=== PATIENT | male | born 1935 | race Two or more races ===

== ENCOUNTER 2020-09-20 17:37 | Inpatient (IN) | payer MEDICARE, MEDICAID ==
[~2020-09-20] VITALS: Ht 165.1 cm; Wt 76.7 kg
[2020-09-20 18:47] LABS: Basophils # (auto) 0 10 ^3/uL (0-0.2); Basophils % (auto) 0.5 % (0.0-2.0); Eosinophils # (auto) 0 10 ^3/uL (0-0.8); Hematocrit 39.8 % (41.0-53.0); Hemoglobin 13.6 g/dL (13.5-17.5); Lymphocytes # (auto) 0.5 10 ^3/uL (0.4-5.4); Lymphocytes % (auto) 10.2 % (10.0-50.0); Mean Corpuscular Hgb Conc. 34.1 g/dL (32.0-36.0); Mean Corpuscular Volume 93.9 fL (80.0-100.0); Monocytes # (auto) 0.7 10 ^3/uL (0-1.3); Monocytes % (auto) 12.7 % (0.0-12.0); Neutrophils # (auto) 4.1 10 ^3/uL (1.6-8.6); Neutrophils % (auto) 76.6 % (37.0-80.0); Nucleated Red Blood Cells % 0.1 %; Platelet Count (auto) 271 10^3/uL (140-450); Red Blood Cells 4.24 10^6/uL (4.5-5.90); Red Cell Distribution Width 13.5 % (11.8-14.3); White Blood Cell 5.3 10^3/uL (4.4-10.8)
[2020-09-20 19:07] LABS: Albumin 2.8 g/dL (3.4-5.0); BUN/Creatinine Ratio 19.5; Calcium 8.1 mg/dL (8.5-10.1); Magnesium 2.1 mg/dL (1.6-2.6)
[2020-09-20 19:10] LABS: Bilirubin, Total 0.6 mg/dL (0.2-1.0); Total Protein 6.8 g/dL (6.4-8.2)
[2020-09-20 23:45] LABS: INR 1.09 (0.9-1.15); Partial Thromboplastin Time 31.3 sec (23.0-31.2)
[2020-09-21 00:52] LABS: Urine Bacteria NONE SEEN /hpf (None Seen); Urine Blood TRACE /uL (Negative); Urine Mucus FEW (None Seen); Urine Specific Gravity 1.029 (1.001-1.035); Urine WBC <1 /hpf (0 - 3)
[2020-09-21] MEDS ORDERED: ACETAMINOPHEN 500 MG TAB PO PRN (03:00)
[2020-09-21] MEDS ORDERED: NITROGLYCERIN 0.4 MG SL TAB SL PRN (03:00)
[2020-09-21] MEDS ORDERED: ONDANSETRON HCL 4 MG/2 ML VIAL IV PRN (03:00)
[2020-09-21] MEDS ORDERED: MORPHINE SULF INJ 2 MG/ML SYRINGE 1ML IV PRN (03:00)
[2020-09-21] MEDS ORDERED: DOCUSATE SOD 100 MG CAP PO PRN (03:00)
[2020-09-21 03:24] VITALS: BP 122/58
[2020-09-21] MEDS ORDERED: IOHEXOL 350 MG/ML 100ML IJ ONE (03:49)
[2020-09-21] MEDS: SODIUM CHLOR 0.9% PF (SALINE LOCK) 10ML VIAL/SYR IV SCH ×3 (06:13→22:00)
[2020-09-21] MEDS: ALBUTEROL SULF HFA 90MCG INH 200DOSE IN SCH ×3 (06:20→22:10)
[2020-09-21] MEDS ORDERED: ENOXAPARIN SOD 40 MG/0.4 ML SYRINGE SC SCH (10:00)
[2020-09-21] MEDS ORDERED: DOXYCYCLINE 100MG/250ML 250 ML IV SCH (10:00)
[2020-09-21] MEDS: BUDESONIDE (INHALATION) 180 MCG IH IN SCH ×2 (10:07→22:10)
[2020-09-21] MEDS: ASCORBIC ACID 1,000 MG TAB PO SCH (10:12)
[2020-09-21] MEDS: APIXABAN 5 MG TAB PO SCH ×2 (10:12→22:45)
[2020-09-21] MEDS: CHOLECALCIFEROL (VITD3) 2,000 UNIT CAP PO SCH (10:12)
[2020-09-21] MEDS: PANTOPRAZOLE 40 MG/10 ML VIAL INJ IV SCH (10:12)
[2020-09-21] MEDS: DexAMETHasone SOD PHOS 10MG/1ML VIAL INJ IV SCH (10:12)
[2020-09-21] MEDS: MULTIPLE VITAMIN TAB PO SCH (10:12)
[2020-09-21] MEDS: ZINC SULFATE 220mg CAP or TAB PO SCH (10:12)
[2020-09-21] MEDS ORDERED: FUROSEMIDE 20 MG/2 ML VIAL IV ONE (12:00)
[2020-09-21] MEDS ORDERED: POTASSIUM CHL 10 Meq TABLET PO ONE (12:00)
[2020-09-21] MEDS ORDERED: PIPERACILLIN-TAZOB 3.375GM 100 ML IV SCH (12:00)
[2020-09-21] MEDS ORDERED: REMDESIVIR 200 MG in NS 210ml LOADING DOSE ADULT IV ONE (18:00)
[2020-09-21] MEDS: PIPERACILLIN-TAZOB 3.375GM 100 ML IV SCH (20:02)
[2020-09-21 23:29] VITALS: BP 97/59
[2020-09-21 23:30] VITALS: BP 97/59
[2020-09-22 00:15] VITALS: BP 94/57
[2020-09-22 00:17] VITALS: BP 94/57
[2020-09-22 02:30] VITALS: BP 103/55
[2020-09-22] MEDS: PIPERACILLIN-TAZOB 3.375GM 100 ML IV SCH ×4 (02:45→20:45)
[2020-09-22] MEDS: ALBUTEROL SULF HFA 90MCG INH 200DOSE IN SCH ×3 (06:00→21:59)
[2020-09-22] MEDS: SODIUM CHLOR 0.9% PF (SALINE LOCK) 10ML VIAL/SYR IV SCH ×3 (06:23→23:40)
[2020-09-22 09:16] LABS: Basophils # (auto) 0 10 ^3/uL (0-0.2); Eosinophils # (auto) 0 10 ^3/uL (0-0.8); Hematocrit 39.8 % (41.0-53.0); Hemoglobin 13.8 g/dL (13.5-17.5); Lymphocytes # (auto) 0.5 10 ^3/uL (0.4-5.4); Lymphocytes % (auto) 6.6 % (10.0-50.0); Mean Corpuscular Hemoglobin 32.4 pg (28.0-32.0); Mean Corpuscular Hgb Conc. 34.6 g/dL (32.0-36.0); Mean Corpuscular Volume 93.8 fL (80.0-100.0); Monocytes # (auto) 0.8 10 ^3/uL (0-1.3); Monocytes % (auto) 9.9 % (0.0-12.0); Neutrophils # (auto) 6.9 10 ^3/uL (1.6-8.6); Neutrophils % (auto) 83.5 % (37.0-80.0); Nucleated Red Blood Cells % 0.1 %; Platelet Count (auto) 293 10^3/uL (140-450); Red Blood Cells 4.24 10^6/uL (4.5-5.90); Red Cell Distribution Width 13.8 % (11.8-14.3); White Blood Cell 8.3 10^3/uL (4.4-10.8)
[2020-09-22] MEDS: DexAMETHasone SOD PHOS 10MG/1ML VIAL INJ IV SCH (09:52)
[2020-09-22] MEDS: FUROSEMIDE 20 MG/2 ML VIAL IV SCH (09:52)
[2020-09-22 09:53] LABS: Albumin 2.5 g/dL (3.4-5.0); BUN/Creatinine Ratio 27.1; Bilirubin, Total 0.7 mg/dL (0.2-1.0); Calcium 8.3 mg/dL (8.5-10.1); Magnesium 2.6 mg/dL (1.6-2.6); Total Protein 6.6 g/dL (6.4-8.2)
[2020-09-22] MEDS: MULTIPLE VITAMIN TAB PO SCH (09:53)
[2020-09-22] MEDS: APIXABAN 5 MG TAB PO SCH (09:53)
[2020-09-22] MEDS: ZINC SULFATE 220mg CAP or TAB PO SCH (09:53)
[2020-09-22] MEDS: ASCORBIC ACID 1,000 MG TAB PO SCH (09:53)
[2020-09-22] MEDS: CHOLECALCIFEROL (VITD3) 2,000 UNIT CAP PO SCH (09:53)
[2020-09-22] MEDS: PANTOPRAZOLE 40 MG/10 ML VIAL INJ IV SCH (09:53)
[2020-09-22] MEDS: POTASSIUM CHL 10 Meq TABLET PO SCH (09:53)
[2020-09-22] MEDS: BUDESONIDE (INHALATION) 180 MCG IH IN SCH ×2 (10:00→21:59)
[2020-09-22] MEDS ORDERED: ASPirin-EC 81 mg tab PO ONE (12:30)
[2020-09-22] MEDS: REMDESIVIR 100mg in NS 230ml DAILYx4DAYS (NO VENT) IV SCH (16:57)
--- NOTE | 2020-09-22 22:01 | NUR ---
AT BEDSIDE FOR MDI AND DPI ADMINISTRATION.
[2020-09-22] MEDS: CARVEDILOL 3.125 MG TAB PO SCH (23:41)
[2020-09-22] MEDS: ENOXAPARIN SOD 100 MG/1 ML SYRINGE SC SCH (23:41)
[2020-09-22] MEDS: ATORVASTATIN 20 MG TAB PO SCH (23:41)
[2020-09-23] MEDS: PIPERACILLIN-TAZOB 3.375GM 100 ML IV SCH ×4 (02:40→20:17)
[2020-09-23] MEDS: SODIUM CHLOR 0.9% PF (SALINE LOCK) 10ML VIAL/SYR IV SCH ×3 (06:20→22:00)
[2020-09-23 06:53] LABS: Basophils # (auto) 0 10 ^3/uL (0-0.2); Basophils % (auto) 0.1 % (0.0-2.0); Eosinophils # (auto) 0 10 ^3/uL (0-0.8); Hematocrit 39.6 % (41.0-53.0); Hemoglobin 13.4 g/dL (13.5-17.5); Lymphocytes # (auto) 0.5 10 ^3/uL (0.4-5.4); Lymphocytes % (auto) 4.3 % (10.0-50.0); Mean Corpuscular Hemoglobin 31.6 pg (28.0-32.0); Mean Corpuscular Hgb Conc. 33.7 g/dL (32.0-36.0); Mean Corpuscular Volume 93.8 fL (80.0-100.0); Monocytes # (auto) 1.1 10 ^3/uL (0-1.3); Monocytes % (auto) 9.8 % (0.0-12.0); Neutrophils # (auto) 9.6 10 ^3/uL (1.6-8.6); Neutrophils % (auto) 85.8 % (37.0-80.0); Platelet Count (auto) 324 10^3/uL (140-450); Red Blood Cells 4.23 10^6/uL (4.5-5.90); Red Cell Distribution Width 13.6 % (11.8-14.3); White Blood Cell 11.2 10^3/uL (4.4-10.8)
[2020-09-23 07:09] LABS: Albumin 2.3 g/dL (3.4-5.0); BUN/Creatinine Ratio 31.9; Calcium 7.9 mg/dL (8.5-10.1); Potassium 4.3 mmol/L (3.5-5.1)
[2020-09-23] MEDS: ALBUTEROL SULF HFA 90MCG INH 200DOSE IN SCH ×3 (07:10→22:26)
[2020-09-23] MEDS: BUDESONIDE (INHALATION) 180 MCG IH IN SCH ×2 (07:10→22:26)
--- NOTE | 2020-09-23 07:10 | NUR ---
PT ON 15L NRB WITH SPO2 93% AND WAS EDUCATED REGARDING PRONING TO IMPROVE OXYGENATION. PT VERBALIZED UNDERSTANDING.
[2020-09-23 07:14] LABS: Bilirubin, Total 0.8 mg/dL (0.2-1.0); Total Protein 6.3 g/dL (6.4-8.2)
[2020-09-23] MEDS: ASCORBIC ACID 1,000 MG TAB PO SCH (08:26)
[2020-09-23] MEDS: POTASSIUM CHL 10 Meq TABLET PO SCH (08:26)
[2020-09-23] MEDS: ASPirin-EC 81 mg tab PO SCH (08:26)
[2020-09-23] MEDS: ZINC SULFATE 220mg CAP or TAB PO SCH (08:26)
[2020-09-23] MEDS: CHOLECALCIFEROL (VITD3) 2,000 UNIT CAP PO SCH (08:26)
[2020-09-23] MEDS: FUROSEMIDE 20 MG/2 ML VIAL IV SCH (08:27)
[2020-09-23] MEDS: DexAMETHasone SOD PHOS 10MG/1ML VIAL INJ IV SCH (08:27)
[2020-09-23] MEDS: CARVEDILOL 3.125 MG TAB PO SCH ×2 (08:27→22:06)
[2020-09-23] MEDS: MULTIPLE VITAMIN TAB PO SCH (08:29)
[2020-09-23] MEDS: ENOXAPARIN SOD 100 MG/1 ML SYRINGE SC SCH ×2 (08:29→22:00)
[2020-09-23] MEDS: PANTOPRAZOLE 40 MG/10 ML VIAL INJ IV SCH (08:29)
[2020-09-23] MEDS: DOXYCYCLINE 100MG/250ML 250 ML IV SCH (14:17)
[2020-09-23] MEDS: REMDESIVIR 100mg in NS 230ml DAILYx4DAYS (NO VENT) IV SCH (16:31)
[2020-09-23] MEDS: ATORVASTATIN 20 MG TAB PO SCH (22:00)
[2020-09-24] MEDS: DOXYCYCLINE 100MG/250ML 250 ML IV SCH ×2 (01:34→12:40)
[2020-09-24 02:38] VITALS: BP 106/65
[2020-09-24] MEDS: PIPERACILLIN-TAZOB 3.375GM 100 ML IV SCH ×4 (03:00→19:51)
[2020-09-24] MEDS: SODIUM CHLOR 0.9% PF (SALINE LOCK) 10ML VIAL/SYR IV SCH ×3 (06:24→22:18)
[2020-09-24 06:37] LABS: Basophils # (auto) 0 10 ^3/uL (0-0.2); Eosinophils # (auto) 0 10 ^3/uL (0-0.8); Hematocrit 41.2 % (41.0-53.0); Hemoglobin 13.7 g/dL (13.5-17.5); Lymphocytes # (auto) 0.6 10 ^3/uL (0.4-5.4); Lymphocytes % (auto) 3.5 % (10.0-50.0); Mean Corpuscular Hemoglobin 31.5 pg (28.0-32.0); Mean Corpuscular Hgb Conc. 33.2 g/dL (32.0-36.0); Mean Corpuscular Volume 94.8 fL (80.0-100.0); Monocytes # (auto) 1.8 10 ^3/uL (0-1.3); Monocytes % (auto) 10.8 % (0.0-12.0); Neutrophils # (auto) 14.3 10 ^3/uL (1.6-8.6); Neutrophils % (auto) 85.7 % (37.0-80.0); Platelet Count (auto) 400 10^3/uL (140-450); Red Blood Cells 4.34 10^6/uL (4.5-5.90); Red Cell Distribution Width 13.9 % (11.8-14.3); White Blood Cell 16.7 10^3/uL (4.4-10.8)
[2020-09-24 06:59] LABS: Albumin 2.3 g/dL (3.4-5.0); Calcium 7.9 mg/dL (8.5-10.1); Potassium 3.9 mmol/L (3.5-5.1)
[2020-09-24 07:03] LABS: BUN/Creatinine Ratio 32.3; Bilirubin, Total 0.8 mg/dL (0.2-1.0); Total Protein 6.6 g/dL (6.4-8.2)
[2020-09-24] MEDS: ALBUTEROL SULF HFA 90MCG INH 200DOSE IN SCH ×3 (08:22→22:00)
[2020-09-24] MEDS: DexAMETHasone SOD PHOS 10MG/1ML VIAL INJ IV SCH (09:26)
[2020-09-24] MEDS: FUROSEMIDE 20 MG/2 ML VIAL IV SCH (09:26)
[2020-09-24] MEDS: PANTOPRAZOLE 40 MG/10 ML VIAL INJ IV SCH (09:26)
[2020-09-24] MEDS: ASPirin-EC 81 mg tab PO SCH (09:30)
[2020-09-24] MEDS: CARVEDILOL 3.125 MG TAB PO SCH ×2 (09:30→22:18)
[2020-09-24] MEDS: ZINC SULFATE 220mg CAP or TAB PO SCH (09:30)
[2020-09-24] MEDS: ASCORBIC ACID 1,000 MG TAB PO SCH (09:31)
[2020-09-24] MEDS: CHOLECALCIFEROL (VITD3) 2,000 UNIT CAP PO SCH (09:31)
[2020-09-24] MEDS: BUDESONIDE (INHALATION) 180 MCG IH IN SCH ×2 (09:31→22:00)
[2020-09-24] MEDS: POTASSIUM CHL 10 Meq TABLET PO SCH (09:31)
[2020-09-24] MEDS: MULTIPLE VITAMIN TAB PO SCH (09:31)
[2020-09-24] MEDS: ENOXAPARIN SOD 100 MG/1 ML SYRINGE SC SCH (09:33)
[2020-09-24 14:37] VITALS: BP 101/62
[2020-09-24] MEDS: REMDESIVIR 100mg in NS 230ml DAILYx4DAYS (NO VENT) IV SCH (17:05)
[2020-09-24] MEDS: Ensure Enlive Strawberry 8oz Bottle PO SCH (18:42)
[2020-09-24 19:23] VITALS: BP 103/76
[2020-09-24] MEDS: ATORVASTATIN 20 MG TAB PO SCH (22:18)
[2020-09-24] MEDS: ENOXAPARIN SOD 80 MG/0.8ML SYRINGE SC SCH (22:19)
[2020-09-24 22:22] VITALS: BP 129/80
[2020-09-25] MEDS: PIPERACILLIN-TAZOB 3.375GM 100 ML IV SCH ×4 (02:00→20:25)
[2020-09-25 02:29] VITALS: BP 110/66
[2020-09-25] MEDS: SODIUM CHLOR 0.9% PF (SALINE LOCK) 10ML VIAL/SYR IV SCH ×3 (06:00→22:37)
[2020-09-25 06:35] VITALS: BP 110/61
[2020-09-25] MEDS: BUDESONIDE (INHALATION) 180 MCG IH IN SCH ×2 (06:35→22:30)
[2020-09-25] MEDS: ALBUTEROL SULF HFA 90MCG INH 200DOSE IN SCH ×3 (06:35→22:30)
[2020-09-25 07:12] LABS: Basophils # (auto) 0 10 ^3/uL (0-0.2); Basophils % (auto) 0.1 % (0.0-2.0); Eosinophils # (auto) 0 10 ^3/uL (0-0.8); Hematocrit 40.1 % (41.0-53.0); Hemoglobin 13.4 g/dL (13.5-17.5); Lymphocytes # (auto) 0.5 10 ^3/uL (0.4-5.4); Lymphocytes % (auto) 3.2 % (10.0-50.0); Mean Corpuscular Hemoglobin 31.3 pg (28.0-32.0); Mean Corpuscular Hgb Conc. 33.4 g/dL (32.0-36.0); Mean Corpuscular Volume 93.7 fL (80.0-100.0); Monocytes % (auto) 6.8 % (0.0-12.0); Neutrophils # (auto) 13.8 10 ^3/uL (1.6-8.6); Neutrophils % (auto) 89.9 % (37.0-80.0); Nucleated Red Blood Cells % 0.1 %; Platelet Count (auto) 369 10^3/uL (140-450); Red Blood Cells 4.27 10^6/uL (4.5-5.90); Red Cell Distribution Width 13.8 % (11.8-14.3); White Blood Cell 15.3 10^3/uL (4.4-10.8)
[2020-09-25 07:25] LABS: Albumin 2.1 g/dL (3.4-5.0); Calcium 7.8 mg/dL (8.5-10.1); Potassium 3.8 mmol/L (3.5-5.1)
[2020-09-25 07:34] LABS: BUN/Creatinine Ratio 32.8; Bilirubin, Total 0.8 mg/dL (0.2-1.0); CRP High Sensitivity 6.77 mg/dL (< 0.3); Total Protein 6.1 g/dL (6.4-8.2)
[2020-09-25] MEDS: Ensure Enlive Strawberry 8oz Bottle PO SCH ×3 (08:00→18:00)
[2020-09-25] MEDS: CARVEDILOL 3.125 MG TAB PO SCH ×2 (08:30→22:36)
[2020-09-25] MEDS: PANTOPRAZOLE 40 MG/10 ML VIAL INJ IV SCH (08:30)
[2020-09-25] MEDS: FUROSEMIDE 20 MG/2 ML VIAL IV SCH (08:30)
[2020-09-25] MEDS: ZINC SULFATE 220mg CAP or TAB PO SCH (08:30)
[2020-09-25] MEDS: DexAMETHasone SOD PHOS 10MG/1ML VIAL INJ IV SCH (08:30)
[2020-09-25] MEDS: ENOXAPARIN SOD 80 MG/0.8ML SYRINGE SC SCH ×2 (08:31→22:35)
[2020-09-25] MEDS: POTASSIUM CHL 10 Meq TABLET PO SCH (08:31)
[2020-09-25] MEDS: ASCORBIC ACID 1,000 MG TAB PO SCH (08:31)
[2020-09-25] MEDS: CHOLECALCIFEROL (VITD3) 2,000 UNIT CAP PO SCH (08:31)
[2020-09-25] MEDS: MULTIPLE VITAMIN TAB PO SCH (08:31)
[2020-09-25] MEDS: ASPirin-EC 81 mg tab PO SCH (08:31)
[2020-09-25] MEDS: DOXYCYCLINE 100MG/250ML 250 ML IV SCH ×2 (09:32)
[2020-09-25] MEDS: Ensure Enlive Chocolate 8oz Bottle PO SCH ×2 (12:02→18:00)
--- NOTE | 2020-09-25 15:57 | NUR ---
Nutrition Assessment Notes Please refer to link for full assessment notes. Est Energy needs: 3186-7036 kcals (20-23 kcal/kgBW) Est Protein needs: 77-84 gms/day (1.0-1.1 gm/kgBW) Will continue to monitor and reassess prn. Addendum: 09/25/20 at [address] Amended: Links added.
[2020-09-25] MEDS: REMDESIVIR 100mg in NS 230ml DAILYx4DAYS (NO VENT) IV SCH (16:26)
[2020-09-25 18:35] VITALS: BP 115/62
[2020-09-25 22:30] VITALS: BP 113/67
[2020-09-25] MEDS: ATORVASTATIN 20 MG TAB PO SCH (22:35)
[2020-09-26] MEDS: DOXYCYCLINE 100MG/250ML 250 ML IV SCH ×2 (00:26→12:39)
[2020-09-26] MEDS: PIPERACILLIN-TAZOB 3.375GM 100 ML IV SCH ×4 (02:01→19:59)
[2020-09-26 02:33] VITALS: BP 119/65
[2020-09-26] MEDS: SODIUM CHLOR 0.9% PF (SALINE LOCK) 10ML VIAL/SYR IV SCH ×3 (06:11→22:19)
[2020-09-26 06:43] LABS: Basophils # (auto) 0 10 ^3/uL (0-0.2); Basophils % (auto) 0.1 % (0.0-2.0); Eosinophils # (auto) 0 10 ^3/uL (0-0.8); Hematocrit 42.6 % (41.0-53.0); Hemoglobin 14.1 g/dL (13.5-17.5); Lymphocytes # (auto) 0.5 10 ^3/uL (0.4-5.4); Lymphocytes % (auto) 2.5 % (10.0-50.0); Mean Corpuscular Hemoglobin 31.3 pg (28.0-32.0); Mean Corpuscular Volume 94.6 fL (80.0-100.0); Monocytes # (auto) 1.5 10 ^3/uL (0-1.3); Monocytes % (auto) 7.7 % (0.0-12.0); Neutrophils # (auto) 17.5 10 ^3/uL (1.6-8.6); Neutrophils % (auto) 89.7 % (37.0-80.0); Nucleated Red Blood Cells % 0.1 %; Platelet Count (auto) 395 10^3/uL (140-450); Red Cell Distribution Width 14.1 % (11.8-14.3); White Blood Cell 19.5 10^3/uL (4.4-10.8)
[2020-09-26 07:15] VITALS: BP 115/60
[2020-09-26] MEDS: ALBUTEROL SULF HFA 90MCG INH 200DOSE IN SCH ×3 (07:15→22:59)
[2020-09-26] MEDS: Ensure Enlive Strawberry 8oz Bottle PO SCH ×3 (08:00→18:00)
[2020-09-26] MEDS: Ensure Enlive Chocolate 8oz Bottle PO SCH ×2 (08:48→12:00)
[2020-09-26] MEDS: CARVEDILOL 3.125 MG TAB PO SCH ×2 (09:09→22:00)
[2020-09-26] MEDS: POTASSIUM CHL 10 Meq TABLET PO SCH (09:09)
[2020-09-26] MEDS: ASPirin-EC 81 mg tab PO SCH (09:09)
[2020-09-26] MEDS: MULTIPLE VITAMIN TAB PO SCH (09:10)
[2020-09-26] MEDS: ZINC SULFATE 220mg CAP or TAB PO SCH (09:10)
[2020-09-26] MEDS: CHOLECALCIFEROL (VITD3) 2,000 UNIT CAP PO SCH (09:10)
[2020-09-26] MEDS: DexAMETHasone SOD PHOS 10MG/1ML VIAL INJ IV SCH (09:11)
[2020-09-26] MEDS: FUROSEMIDE 20 MG/2 ML VIAL IV SCH (09:11)
[2020-09-26] MEDS: ENOXAPARIN SOD 80 MG/0.8ML SYRINGE SC SCH ×2 (09:11→22:20)
[2020-09-26] MEDS: PANTOPRAZOLE 40 MG/10 ML VIAL INJ IV SCH (09:11)
[2020-09-26] MEDS: ASCORBIC ACID 1,000 MG TAB PO SCH (09:11)
[2020-09-26] MEDS: BUDESONIDE (INHALATION) 180 MCG IH IN SCH ×2 (09:50→22:59)
[2020-09-26 12:12] VITALS: BP 122/72
[2020-09-26 18:44] VITALS: BP 93/53
[2020-09-26 20:08] VITALS: BP 93/53
[2020-09-26] MEDS: ATORVASTATIN 20 MG TAB PO SCH (22:00)
[2020-09-26 22:59] VITALS: BP 101/50
[2020-09-27] MEDS: PIPERACILLIN-TAZOB 3.375GM 100 ML IV SCH ×4 (01:50→20:00)
[2020-09-27 06:10] VITALS: BP 114/50
[2020-09-27] MEDS: SODIUM CHLOR 0.9% PF (SALINE LOCK) 10ML VIAL/SYR IV SCH ×3 (06:13→21:18)
[2020-09-27] MEDS: BUDESONIDE (INHALATION) 180 MCG IH IN SCH ×2 (06:23→22:20)
[2020-09-27] MEDS: ALBUTEROL SULF HFA 90MCG INH 200DOSE IN SCH ×3 (06:23→22:20)
[2020-09-27] MEDS: Ensure Enlive Strawberry 8oz Bottle PO SCH ×3 (08:00→18:00)
[2020-09-27 08:56] LABS: Basophils # (auto) 0 10 ^3/uL (0-0.2); Basophils % (auto) 0.1 % (0.0-2.0); Eosinophils # (auto) 0 10 ^3/uL (0-0.8); Hematocrit 38.6 % (41.0-53.0); Hemoglobin 12.9 g/dL (13.5-17.5); Lymphocytes # (auto) 0.4 10 ^3/uL (0.4-5.4); Lymphocytes % (auto) 2.1 % (10.0-50.0); Mean Corpuscular Hemoglobin 31.2 pg (28.0-32.0); Mean Corpuscular Hgb Conc. 33.5 g/dL (32.0-36.0); Mean Corpuscular Volume 93.1 fL (80.0-100.0); Monocytes # (auto) 1.3 10 ^3/uL (0-1.3); Monocytes % (auto) 7.1 % (0.0-12.0); Neutrophils # (auto) 16.9 10 ^3/uL (1.6-8.6); Neutrophils % (auto) 90.7 % (37.0-80.0); Platelet Count (auto) 443 10^3/uL (140-450); Red Blood Cells 4.15 10^6/uL (4.5-5.90); Red Cell Distribution Width 14.2 % (11.8-14.3); White Blood Cell 18.7 10^3/uL (4.4-10.8)
[2020-09-27 09:07] LABS: Bilirubin, Direct 0.5 mg/dL (0-0.2); Magnesium 2.7 mg/dL (1.6-2.6); Potassium 4.1 mmol/L (3.5-5.1)
[2020-09-27 09:12] LABS: Bilirubin, Total 0.8 mg/dL (0.2-1.0); Total Protein 6.4 g/dL (6.4-8.2)
[2020-09-27] MEDS: DexAMETHasone SOD PHOS 10MG/1ML VIAL INJ IV SCH (09:28)
[2020-09-27] MEDS: PANTOPRAZOLE 40 MG/10 ML VIAL INJ IV SCH (09:29)
[2020-09-27] MEDS: POTASSIUM CHL 10 Meq TABLET PO SCH (09:29)
[2020-09-27] MEDS: ENOXAPARIN SOD 80 MG/0.8ML SYRINGE SC SCH ×2 (09:29→21:19)
[2020-09-27] MEDS: ASCORBIC ACID 1,000 MG TAB PO SCH (09:29)
[2020-09-27] MEDS: MULTIPLE VITAMIN TAB PO SCH (09:29)
[2020-09-27] MEDS: FUROSEMIDE 20 MG/2 ML VIAL IV SCH (09:29)
[2020-09-27] MEDS: CHOLECALCIFEROL (VITD3) 2,000 UNIT CAP PO SCH (09:29)
[2020-09-27] MEDS: CARVEDILOL 3.125 MG TAB PO SCH ×2 (09:30→21:18)
[2020-09-27] MEDS: ASPirin-EC 81 mg tab PO SCH (09:30)
[2020-09-27] MEDS: ZINC SULFATE 220mg CAP or TAB PO SCH (09:30)
[2020-09-27 10:20] VITALS: BP 103/60
[2020-09-27 14:08] VITALS: BP 98/58
[2020-09-27] MEDS: ATORVASTATIN 20 MG TAB PO SCH (21:18)
[2020-09-27 22:10] VITALS: BP 114/50
[2020-09-28 02:10] VITALS: BP 123/75
[2020-09-28] MEDS: PIPERACILLIN-TAZOB 3.375GM 100 ML IV SCH ×4 (03:11→21:07)
[2020-09-28] MEDS: SODIUM CHLOR 0.9% PF (SALINE LOCK) 10ML VIAL/SYR IV SCH ×3 (06:21→23:00)
[2020-09-28 07:00] VITALS: BP 115/72
[2020-09-28] MEDS: ALBUTEROL SULF HFA 90MCG INH 200DOSE IN SCH ×3 (07:00→18:53)
[2020-09-28] MEDS: BUDESONIDE (INHALATION) 180 MCG IH IN SCH ×2 (07:00→18:53)
[2020-09-28] MEDS: Ensure Enlive Strawberry 8oz Bottle PO SCH ×3 (07:43→17:21)
[2020-09-28 08:09] LABS: Basophils # (auto) 0 10 ^3/uL (0-0.2); Basophils % (auto) 0.1 % (0.0-2.0); Eosinophils # (auto) 0 10 ^3/uL (0-0.8); Eosinophils % (auto) 0.1 % (0.0-7.0); Hematocrit 40.9 % (41.0-53.0); Hemoglobin 13.4 g/dL (13.5-17.5); Lymphocytes # (auto) 0.4 10 ^3/uL (0.4-5.4); Lymphocytes % (auto) 2.4 % (10.0-50.0); Mean Corpuscular Hgb Conc. 32.8 g/dL (32.0-36.0); Mean Corpuscular Volume 94.5 fL (80.0-100.0); Monocytes # (auto) 1.3 10 ^3/uL (0-1.3); Monocytes % (auto) 7.3 % (0.0-12.0); Neutrophils # (auto) 16.3 10 ^3/uL (1.6-8.6); Neutrophils % (auto) 90.1 % (37.0-80.0); Platelet Count (auto) 442 10^3/uL (140-450); Red Blood Cells 4.33 10^6/uL (4.5-5.90); Red Cell Distribution Width 14.4 % (11.8-14.3); White Blood Cell 18.1 10^3/uL (4.4-10.8)
[2020-09-28] MEDS: ZINC SULFATE 220mg CAP or TAB PO SCH (08:28)
[2020-09-28] MEDS: MULTIPLE VITAMIN TAB PO SCH (08:29)
[2020-09-28] MEDS: CARVEDILOL 3.125 MG TAB PO SCH ×2 (08:29→23:01)
[2020-09-28] MEDS: POTASSIUM CHL 10 Meq TABLET PO SCH (08:29)
[2020-09-28] MEDS: ASPirin-EC 81 mg tab PO SCH (08:29)
[2020-09-28] MEDS: CHOLECALCIFEROL (VITD3) 2,000 UNIT CAP PO SCH (08:30)
[2020-09-28] MEDS: ASCORBIC ACID 1,000 MG TAB PO SCH (08:30)
[2020-09-28 08:42] LABS: BUN/Creatinine Ratio 43.8; Calcium 8.3 mg/dL (8.5-10.1); Magnesium 3.1 mg/dL (1.6-2.6); Potassium 4.6 mmol/L (3.5-5.1)
[2020-09-28] MEDS: DexAMETHasone SOD PHOS 10MG/1ML VIAL INJ IV SCH (09:01)
[2020-09-28] MEDS: FUROSEMIDE 20 MG/2 ML VIAL IV SCH (09:01)
[2020-09-28] MEDS: PANTOPRAZOLE 40 MG/10 ML VIAL INJ IV SCH (09:01)
[2020-09-28] MEDS: ENOXAPARIN SOD 80 MG/0.8ML SYRINGE SC SCH ×2 (09:01→23:00)
[2020-09-28] MEDS ORDERED: APIXABAN 5 MG TAB PO SCH (10:00)
--- NOTE | 2020-09-28 11:26 | NUR ---
Nutrition Followup Notes Pt wt is 76.6 kg Pt is positive for COVID. Pt is with a 2g Sodium diet with no record of PO intake other than 240ml on 09/24 per RN doc. Pt is also with Ensure Enlive TID. Continue to monitor and assist pt with PO intake to meet at least 75% of meals. If pt appetite remains low, consider supplemental Nutrition EN support Jevity 1.2 @ 60ml/hr goal rate as tolerated and per MD approval. Est Energy needs: 2475-7229 kcals (20-23 kcal/kgBW) Est Protein needs: 77-84 gms/day (1.0-1.1 gm/kgBW) Will continue to monitor and reassess prn. LABS: BUN 49 H, CA 8.3 L, ALB 2.0 L, Troponin 1.950 H GI: Pt had 3 BMs on 09/23 per RN doc. BS: No Score reported PES: Altered nutrition related lab values r/t current medical condition aeb elev RFT, hypocalcemia, hypoalbuminemia Comments Will continue to monitor PO status, skin status, pertinent labs and weight trends. Will f/u in 3-5 days 1) Continue to closely monitor pt PO intake to meet at least 75% of meals 2) If pt appetite remains low, consider supplemental Nutrition EN support Jevity 1.2 @ 60ml/hr goal rate as tolerated and per MD approval. 3) If albumin continues trending down with improved RFT, consider Prostat 1 pkt BID 4) Continue current plan of care
[2020-09-28] MEDS: ENSURE CLEAR Apple 8oz Carton PO SCH ×2 (12:00→17:21)
[2020-09-28 12:50] VITALS: BP 112/65
[2020-09-28 18:53] VITALS: BP 98/54
[2020-09-28] MEDS: ATORVASTATIN 20 MG TAB PO SCH (23:01)
[2020-09-29 00:05] VITALS: BP 124/70
[2020-09-29] MEDS: PIPERACILLIN-TAZOB 3.375GM 100 ML IV SCH ×2 (03:18→10:15)
[2020-09-29] MEDS: SODIUM CHLOR 0.9% PF (SALINE LOCK) 10ML VIAL/SYR IV SCH ×3 (06:17→23:27)
[2020-09-29 06:50] VITALS: BP 121/70
[2020-09-29] MEDS: ALBUTEROL SULF HFA 90MCG INH 200DOSE IN SCH ×3 (07:15→22:06)
[2020-09-29] MEDS: BUDESONIDE (INHALATION) 180 MCG IH IN SCH ×2 (07:15→22:06)
[2020-09-29 08:30] LABS: Basophils # (auto) 0.1 10 ^3/uL (0-0.2); Basophils % (auto) 0.3 % (0.0-2.0); Eosinophils # (auto) 0.1 10 ^3/uL (0-0.8); Eosinophils % (auto) 0.4 % (0.0-7.0); Hematocrit 42.8 % (41.0-53.0); Hemoglobin 13.9 g/dL (13.5-17.5); Lymphocytes # (auto) 0.5 10 ^3/uL (0.4-5.4); Lymphocytes % (auto) 2.9 % (10.0-50.0); Mean Corpuscular Hemoglobin 30.6 pg (28.0-32.0); Mean Corpuscular Hgb Conc. 32.5 g/dL (32.0-36.0); Mean Corpuscular Volume 94.3 fL (80.0-100.0); Monocytes % (auto) 5.7 % (0.0-12.0); Neutrophils % (auto) 90.7 % (37.0-80.0); Nucleated Red Blood Cells % 0.1 %; Platelet Count (auto) 440 10^3/uL (140-450); Red Blood Cells 4.54 10^6/uL (4.5-5.90); Red Cell Distribution Width 14.3 % (11.8-14.3); White Blood Cell 17.7 10^3/uL (4.4-10.8)
[2020-09-29] MEDS: Ensure Enlive Strawberry 8oz Bottle PO SCH ×3 (08:53→18:56)
[2020-09-29] MEDS: ENSURE CLEAR Apple 8oz Carton PO SCH ×3 (08:53→18:56)
[2020-09-29] MEDS: ASPirin-EC 81 mg tab PO SCH (10:00)
[2020-09-29] MEDS: ASCORBIC ACID 1,000 MG TAB PO SCH (10:00)
[2020-09-29] MEDS: FUROSEMIDE 20 MG/2 ML VIAL IV SCH (10:00)
[2020-09-29] MEDS: ZINC SULFATE 220mg CAP or TAB PO SCH (10:00)
[2020-09-29] MEDS: MULTIPLE VITAMIN TAB PO SCH (10:00)
[2020-09-29] MEDS: POTASSIUM CHL 10 Meq TABLET PO SCH (10:00)
[2020-09-29] MEDS: CARVEDILOL 3.125 MG TAB PO SCH ×2 (10:00→23:26)
[2020-09-29] MEDS: CHOLECALCIFEROL (VITD3) 2,000 UNIT CAP PO SCH (10:00)
[2020-09-29] MEDS: ENOXAPARIN SOD 80 MG/0.8ML SYRINGE SC SCH ×2 (10:15→23:26)
[2020-09-29] MEDS: PANTOPRAZOLE 40 MG/10 ML VIAL INJ IV SCH (10:15)
[2020-09-29] MEDS: DexAMETHasone SOD PHOS 10MG/1ML VIAL INJ IV SCH (12:10)
[2020-09-29 14:30] VITALS: BP 118/75
[2020-09-29] MEDS ORDERED: MEROPENEM 1GM IVPB 100 ML IV ONE (15:30)
[2020-09-29 19:11] VITALS: BP 128/66
[2020-09-29 22:06] VITALS: BP 108/57
[2020-09-29] MEDS: ATORVASTATIN 20 MG TAB PO SCH (23:26)
[2020-09-29] MEDS: LINEZOLID 600MG/300ML 300 ML IV SCH (23:27)
[2020-09-30 01:08] VITALS: BP 108/57
[2020-09-30 02:11] VITALS: BP 136/76
[2020-09-30 06:00] VITALS: BP 127/73
[2020-09-30] MEDS: BUDESONIDE (INHALATION) 180 MCG IH IN SCH (06:00)
[2020-09-30] MEDS: SODIUM CHLOR 0.9% PF (SALINE LOCK) 10ML VIAL/SYR IV SCH ×2 (06:00→14:00)
[2020-09-30] MEDS: ALBUTEROL SULF HFA 90MCG INH 200DOSE IN SCH ×2 (06:00→14:00)
[2020-09-30] MEDS: Ensure Enlive Strawberry 8oz Bottle PO SCH ×2 (08:00→12:00)
[2020-09-30] MEDS: MEROPENEM 1GM IVPB 100 ML IV SCH ×3 (08:00→16:00)
[2020-09-30] MEDS: ENSURE CLEAR Apple 8oz Carton PO SCH ×3 (08:00→18:00)
[2020-09-30] MEDS: LINEZOLID 600MG/300ML 300 ML IV SCH (10:00)
[2020-09-30] MEDS: FUROSEMIDE 20 MG/2 ML VIAL IV SCH (10:00)
[2020-09-30] MEDS: ZINC SULFATE 220mg CAP or TAB PO SCH (10:00)
[2020-09-30] MEDS: POTASSIUM CHL 10 Meq TABLET PO SCH (10:00)
[2020-09-30] MEDS: ASCORBIC ACID 1,000 MG TAB PO SCH (10:00)
[2020-09-30] MEDS: CARVEDILOL 3.125 MG TAB PO SCH (10:00)
[2020-09-30] MEDS: MULTIPLE VITAMIN TAB PO SCH (10:00)
[2020-09-30] MEDS: ENOXAPARIN SOD 80 MG/0.8ML SYRINGE SC SCH (10:00)
[2020-09-30] MEDS: CHOLECALCIFEROL (VITD3) 2,000 UNIT CAP PO SCH (10:00)
[2020-09-30] MEDS: ASPirin-EC 81 mg tab PO SCH (10:00)
[2020-09-30] MEDS: PANTOPRAZOLE 40 MG/10 ML VIAL INJ IV SCH (10:00)
[2020-09-30] MEDS: DexAMETHasone SOD PHOS 10MG/1ML VIAL INJ IV SCH (10:00)
[2020-09-30] MEDS ORDERED: BUDE2SUS3 IN (12:46)
[2020-09-30] MEDS ORDERED: POTA1TAB61 PO (12:46)
[2020-09-30] MEDS ORDERED: PANT40TA2 PO (12:46)
[2020-09-30] MEDS ORDERED: ASCO10003 PO (12:46)
[2020-09-30] MEDS ORDERED: ALBUAER3 IN (12:46)
[2020-09-30] MEDS ORDERED: DOXY-286 PO (12:46)
[2020-09-30] MEDS ORDERED: FURO1TAB33 PO (12:46)
[2020-09-30] MEDS ORDERED: CAR3125T PO (12:46)
[2020-09-30] MEDS ORDERED: ZINC220T6 PO (12:46)
[2020-09-30] MEDS ORDERED: METH4PAK PO (12:46)
[2020-09-30] MEDS ORDERED: CHOL1CAP47 PO (12:46)
[2020-09-30] MEDS ORDERED: APIX5TAB PO (12:46)
--- NOTE | 2020-09-30 13:00 | NUR ---
Pt is an alert and oriented male that resided home alone prior to admission. Provider referring pt to hospice. Pt in agreeance and anxious to get home but pt is on high flow oxygen and needing assistance at home. Pt has decreased in oxygen needs but needing assistance at home or placement. Pt is currently positive for COVID. Discussed with pts brother, Stefany, who stated he will be pts primary caregiver. Stefany stated no hospice preference and in agreeance with [facility] ([phone]) that will be providing the high flow oxygen. [facility] ambulance ([phone]) set up for transportation for 7pm. Medicare PCS form faxed and confirmed by Nick at [facility]. Addendum: 09/30/20 at 1301 by ANISHA BADILLO SS Amended: Links added.
--- NOTE | 2020-09-30 13:13 | NUR ---
Pt currently intubated and will need to be assessed when medically stable and closer to discharge. Addendum: 09/30/20 at 1317 by ANISHA CHAWLA Amended: Links added.
[2020-09-30] MEDS ORDERED: NOREPINEPHRINE 8 MG/250ML KIT 250 ML IV ONE (16:52)
[2020-09-30] MEDS ORDERED: NOREPINEPHRINE 8 MG/250ML KIT 250 ML IV SCH ×2 (17:00→18:00)
[2020-09-30 17:10] VITALS: BP 55/32
[2020-09-30] MEDS ORDERED: MORPHINE SULF INJ 2 MG/ML SYRINGE 1ML ONE (17:15)
[2020-09-30] MEDS ORDERED: HYDROmorphone HCL 2 MG/ML VL ONE (17:23)
[2020-09-30] MEDS ORDERED: MORPHINE SULF INJ 2 MG/ML SYRINGE 1ML IV ONE (18:00)
[2020-09-30] MEDS ORDERED: HYDROmorphone HCL 2 MG/ML VL IV ONE (18:00)
== END 2020-09-30 18:10 | disposition expired | DRG 871 ==
LOC: ER 17:37 → EDBD 17:37 → EDSEX 17:37 → TELE 09-21 02:55
PROVIDERS: ADMIT Nurse Practitioner Family; ATTEND Internal Medicine
PROC: XW033E5 Introduction of Remdesivir Anti-infective into Peripheral Vein, Percutaneous Approach, New Technology Group 5 (ICD-10-PCS; 2020-09-21)
PROC: XW13325 Transfusion of Convalescent Plasma (Nonautologous) into Peripheral Vein, Percutaneous Approach, New Technology Group 5 (ICD-10-PCS; principal; 2020-09-22)
DX: A41.89 Other specified sepsis (principal); U07.1 COVID-19; J12.89 Other viral pneumonia; I21.A1 Myocardial infarction type 2; J96.01 Acute respiratory failure with hypoxia; I26.99 Other pulmonary embolism without acute cor pulmonale; I50.43 Acute on chronic combined systolic (congestive) and diastolic (congestive) heart failure; E43 Unspecified severe protein-calorie malnutrition; J44.1 Chronic obstructive pulmonary disease with (acute) exacerbation; C34.90 Malignant neoplasm of unspecified part of unspecified bronchus or lung; Z51.5 Encounter for palliative care; Z66 Do not resuscitate; Z68.28 Body mass index [BMI] 28.0-28.9, adult; Z85.118 Personal history of other malignant neoplasm of bronchus and lung; Z87.891 Personal history of nicotine dependence; Z90.2 Acquired absence of lung [part of]; Z85.828 Personal history of other malignant neoplasm of skin
CPT/HCPCS: 36415; 36600; 71045; 71275; 76604; 80048; 80053; 80061; 80076; 81001; 82306; 82728; 82805; 83036; 83615; 83735; 83880; 84132; 84443; 84484; 85025; 85379; 85610; 85730; 86141; 86850; 86900; 86901; 87040; 87426; 93005; 93970; 94640; C9113; G0378; J1100; J2185; J2543; J3490